=== PATIENT | male | born 2000 | race Hispanic/Latino ===

== ENCOUNTER 2019-11-23 13:55 | Inpatient (IN) | payer OTHER ==
[~2019-11-23] VITALS: Ht 165.1 cm; Wt 62.7 kg
[2019-11-23 14:27] LABS: HEMOGLOBIN 15.5 g/dl (13.5-17.5); MEAN CORPUSCULAR HEMOGLOBIN 30.7 pg (27.0-33.0); MEAN CORPUSCULAR HGB CONC 34.4 g/dl (32.0-36.5); MEAN CORPUSCULAR VOLUME 89.1 fl (80.0-96.0); PLATELET COUNT, AUTOMATED 289 10^3/uL (150-450); RED BLOOD COUNT 5.05 10^6/uL (4.30-6.10); WHITE BLOOD COUNT 5.8 10^3/uL (4.0-10.0)
[2019-11-23 14:48] LABS: AMPHETAMINES LEVEL URINE NEGATIVE (NEGATIVE); BARBITURATES URINE NEGATIVE (NEGATIVE); BENZODIAZEPINES URINE NEGATIVE (NEGATIVE); CANNABINOIDS URINE NEGATIVE (NEGATIVE); COCAINE METABOLITE URINE NEGATIVE (NEGATIVE); METHADONE URINE NEGATIVE (NEGATIVE); OPIATES URINE NEGATIVE (NEGATIVE); PHENCYCLIDINE URINE NEGATIVE (NEGATIVE)
[2019-11-23 14:58] LABS: ACETAMINOPHEN LEVEL < 2.0 UG/ML (10.0-30.0); ALBUMIN 4.4 GM/DL (3.2-5.2); ALT/SGPT 31 U/L (12-78); BILIRUBIN,DIRECT 0.2 MG/DL (0.0-0.2); BILIRUBIN,TOTAL 0.7 MG/DL (0.2-1.0); BLOOD UREA NITROGEN 13 MG/DL (7-18); CALCIUM LEVEL 8.7 MG/DL (8.5-10.1); CARBON DIOXIDE LEVEL 29 MEQ/L (21-32); CHLORIDE LEVEL 106 MEQ/L (98-107); CREATININE FOR GFR 0.91 MG/DL (0.70-1.30); ETHYL ALCOHOL (ETHANOL) < 0.003 % (0.000-0.010); GLUCOSE, FASTING 91 MG/DL (70-100); SALICYLATE LEVEL < 1.7 MG/DL (5.0-30.0); SODIUM LEVEL 140 MEQ/L (136-145)
[2019-11-23] MEDS ORDERED: MAALOX 30 ML SUSP *UDC PO PRN (16:15)
[2019-11-23] MEDS ORDERED: MOM 30ML SUSPENSION UDC PO PRN (16:15)
[2019-11-23] MEDS ORDERED: hydrOXYzine 25 MG TAB PO PRN (16:15)
[2019-11-23] MEDS ORDERED: ACETAMINOPHEN TAB 650MG DOSE (2X325MG) PO PRN (16:15)
[2019-11-23] MEDS ORDERED: traZODone 50 MG TAB PO PRN (16:15)
[2019-11-23 17:14] VITALS: BP 157/91
[2019-11-23] MEDS: SERTRALINE HCL 50 MG TAB PO SCH (22:07)
[2019-11-24 06:33] VITALS: BP 150/83
[2019-11-24 11:08] VITALS: BP 150/83
--- NOTE | 2019-11-24 12:06 | HPEPDOC ---
[facility] Medical History & Physical Date of Admission Nov 24, 2019 Date of Service: Nov 24, 2019 History and Physical CHIEF COMPLAINT: Medical H&P for inpatient mental health unit patient HISTORY OF PRESENT ILLNESS: 19 yo male for suicidal ideation, no medical complaints at this time, denies any medical history. PAST MEDICAL HISTORY: Denies PAST SURGICAL HISTORY: Denies ALLERGIES: Please see below. REVIEW OF SYSTEMS: Negative except as per HPI. HOME MEDICATIONS: Please see below. PHYSICAL EXAM Vital Signs: See below General: NAD, lying comfortably in bed HEENT: NC/AT, EOMI, PERRL Lungs: CTA B/L Heart: +S1S2, RRR Abd: soft, NT, +BS Ext: no edema Neuro: no gross focal deficits Psych: AAOx3 LABORATORY DATA: See below. MICROBIOLOGY: Please see below. ASSESSMENT: 19 yo male admitted to [facility] for suicidal ideation, hospitalist consulted for medical co-management. #suicidal ideation - continue to follow as per primary team - psychiatry #DVT prophylaxis - not indicated Vital Signs Vital Signs Date Time Temp Pulse Resp B/P (MAP) Pulse Ox O2 Delivery O2 Flow Rate FiO2 11/24/19 11:08 99.5 57 16 150/83 98 Room Air Laboratory Data Labs 24H Laboratory Tests 2 11/23/19 14:15: Nucleated Red Blood Cells % (auto) 0.0, Anion Gap 5L, Calcium Level 8.7, Total Bilirubin 0.7, Direct Bilirubin 0.2, Aspartate Amino Transf (AST/SGOT) 20, Alanine Aminotransferase (ALT/SGPT) 31, Alkaline Phosphatase 83, Total Protein 8.0, Albumin 4.4, Albumin/Globulin Ratio 1.22, Thyroid Stimulating Hormone (TSH) 0.990, Salicylates Level < 1.7L, Urine Opiates Screen NEGATIVE, Urine Methadone Screen NEGATIVE, Acetaminophen Level < 2.0L, Urine Barbiturates Screen NEGATIVE, Urine Phencyclidine Screen NEGATIVE, Urine Amphetamines Screen NEGATIVE, Urine Benzodiazepines Screen NEGATIVE, Urine Cocaine Metabolite Screen NEGATIVE, Urine Cannabinoids Screen NEGATIVE, Ethyl Alcohol Level < 0.003 CBC/BMP Laboratory Tests 11/23/19 14:15 Home Medications Scheduled Oseltamivir Phosphate (Oseltamivir Phosphate) 75 Mg Capsule, 75 MG PO DAILY for flu Sertraline HCl (Sertraline HCl) 50 Mg Tablet, 50 MG PO QHS for mood Allergies Coded Allergies: No Known Allergies (Unverified , 2/22/20) A-FIB/CHADSVASC A-FIB History Current/History of A-Fib/PAF?: No KAZ SCHULTZ MD Nov 24, 2019 12:06
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
[2019-11-24 16:00] VITALS: BP 140/78
[2019-11-24] MEDS: SERTRALINE HCL 50 MG TAB PO SCH (20:39)
[2019-11-25 06:46] VITALS: BP 134/68
--- NOTE | 2019-11-25 08:41 | MHIPNPDOC ---
[facility] Progress Note Progress Note Joel Hoskins Inpatient Progress Note Joel Hoskins Select Gender MRN: N/A Date of : MM/DD/YYYY Date of Service: 11/25/2019 History of Present Illness Patient is a 19 -year-old , male, who as per ED report " Pt presented to ED with his Rosa SGt. after stating +SI and needed help. Pt reported, made several attempts since age 6. Pt stated last attempt was a week ago when he "bashed" his head against wall and kocked himself. "Didn't care if I woke up". "Pt attempted SI by overdose (Nyquil & Ibeprofin) 2 weeks ago. "I get mad when I wake in morning, damn I'm still alive". Pt reported thoughts of SI daily, some thoughts more intense than other times. Pt stated, self conscious, low self-esteem. "I see myself as worthless and have no use", since age 6-7. According to Pt, attempted to seek help @ [facility]. Had an apt for 11/28/2019, they cancelled it. Next apt is scheduled for 12/18/2019. Pt stated, has 2 SI attempts at age 11y/o and 12 y/o, was never reported". Interval History Narrative: The patient has met with today. He reports that he still feels down. Affective: The patient still reports low mood, loss of interest and difficulty focusing on goals. Psychotic: Denies any symptoms. Anxiety: Situational worries. Eating and sleeping behaviors: Some disruption in sleeping, reports trazodone not helpful. Eating behavior is normal. Group Attendance: Attends infrequently. Medication Side effects: See ROS below Behavioral problems/significant events overnight: None reported. Staff Report: Generally guarded, but amenable upon approach. Review Of Systems General: Denies fever or appetite changes Cardiovascular: Denies Chest pain or palpations GI: Denies Nausea, vomiting, or bowel changes Respiratory: Denies shortness of breath or cough Neuro: Denies dizziness, tremors Derm: Denies any rashes or pruritus : Denies any dysuria or urinary problems MSK: Denies any muscle tightness or stiffness HEENT: Denies any vision changes or headaches Psychotherapy None on this visit. Vital Signs Reviewed. Mental Status Examination General: Well dressed with good hygiene Speech: Spontaneous and fluid Thought processes: Linear MSK: Smooth and coordinated gait, no signs of tremors or involuntary orofacial movements Thought content: Hopeless Abstract reasoning, and computation: Intact Description of associations: Intact Description of abnormal or psychotic thoughts: Denies any suicidal or homicidal ideation. Denies any auditory or visual hallucinations. Does not appear to be responding to internal stimuli. Does not appear to be endorsing any bizarre or paranoid ideation. Judgment: Impaired Insight: Impaired Orientation: Alert and orientated 3 Cognition: Grossly normal Recent and remote memory: Intact Attention span and concentration: Intact Fund of knowledge: Adequate Mood: "fine" Affect: Dysthymic with a constricted range Diagnoses MDD, recurrent, [id number]. PTSD, chronic. Assessment and Plan MDD/PTSD: Continue sertraline 50 mg daily. Disposition Patient will need a further inpatient admission for titration of his medications, his symptoms are quite severe and thus necessitate further treatment due to multiple suicide attempts. Time Spent 15 minutes. Vital Signs Vital Signs Date Time Temp Pulse Resp B/P (MAP) Pulse Ox O2 Delivery O2 Flow Rate FiO2 11/25/19 06:46 98.8 70 16 134/68 (90) Room Air 11/24/19 11:08 98 Current Medications Current Medications Medications (Trade) Dose Ordered Sig/Irving Route PRN Reason Start Time Stop Time Status Last Admin Dose Admin Acetaminophen (Tylenol Tab) 650 mg Q6HP PRN PO HEADACHE or DISCOMFORT 11/23/19 16:15 Al Hydrox/Mg Hydrox/Simethicone (Mylanta) 30 ml Q4HP PRN PO HEARTBURN/INDIGESTION 11/23/19 16:15 Home Med (Med Rec Complete!) ASDIRECTED XX 11/23/19 16:45 11/23/19 16:41 DC Hydroxyzine HCl (Atarax) 25 mg Q4HP PRN PO ANXIETY 11/23/19 16:15 Magnesium Hydroxide (Milk Of Magnesia) 30 ml DAILYPRN PRN PO CONSTIPATION 11/23/19 16:15 Sertraline HCl (Zoloft) 50 mg QHS PO 11/23/19 21:00 11/24/19 20:39 Trazodone HCl (Desyrel) 50 mg QHSP PRN PO INSOMNIA 11/23/19 16:15 11/24/19 21:21 Allergies Coded Allergies: No Known Allergies (Unverified , 11/23/19) NAT JERRY DO Nov 25, 2019 08:41
[2019-11-25 15:47] VITALS: BP 150/90
[2019-11-25] MEDS: RAMELTEON 8 MG TAB (ROZEREM) PO SCH (20:06)
[2019-11-25] MEDS: SERTRALINE HCL 50 MG TAB PO SCH (20:06)
[2019-11-26 06:52] VITALS: BP 143/76
--- NOTE | 2019-11-26 15:28 | IPNPDOC ---
Date Seen The patient was seen on 11/26/19. Progress Note We were recalled because there is a flu outbreak in inpatient mental health unit and patient is requesting prophylactic Tamiflu. Patient seen, comfortable in bed, asymptomatic, denies any short of breath, cough, nausea, vomiting, myalgia, arthralgia, or fever. Patient would like Tamiflu. Patient has no complaints at this time PHYSICAL EXAMINATION: VITAL SIGNS: Please see below. GENERAL: No distress HEENT: Normocephalic, atraumatic, moist mucous membranes NECK: Supple CARDIOVASCULAR EXAMINATION: S1, S2, no murmurs RESPIRATORY EXAMINATION: Clear to auscultation, no wheezing ABDOMINAL EXAMINATION: Soft, nontender, nondistended, positive bowel sounds EXTREMITIES: Range of motion intact SKIN: No rash NEUROLOGICAL EXAMINATION: Alert and oriented 3, no focal deficits PSYCHIATRIC EXAMINATION: Calm and cooperative Plan: Check respiratory viral panel, Tamiflu 75 mg daily for prophylaxis. VS, I&O, 24H, Fishbone Vital Signs/I&O Vital Signs Date Time Temp Pulse Resp B/P (MAP) Pulse Ox O2 Delivery O2 Flow Rate FiO2 11/26/19 07:57 Room Air 11/26/19 06:52 97.4 75 16 143/76 (98) 11/24/19 11:08 98 KASH JOHNSON MD Nov 26, 2019 15:28
[2019-11-26] MEDS: OSELTAMIVIR PHOSPHATE 75 MG CAP (TAMIFLU) PO SCH (15:52)
[2019-11-26 16:00] VITALS: BP 153/90
[2019-11-26] MEDS: RAMELTEON 8 MG TAB (ROZEREM) PO SCH (20:58)
[2019-11-26] MEDS: SERTRALINE HCL 50 MG TAB PO SCH (20:58)
--- NOTE | 2019-11-26 23:23 | MHIPN ---
DATE: 11/26/2019 The patient states, "I'm doing fine." He feels it is because being in the hospital he is not feeling as stressed out, and therefore, not having any impulse to self-harm. MENTAL STATUS EXAM: This patient is alert and oriented times three. Eye contact is fairly good. He is verbally spontaneous. There is no formal thought disorder noted. Mood is "fine." Affect restricted but appropriate. He is not psychotic. Denying being suicidal or homicidal. Concentration is fair. Memory intact. Insight and judgment fair. DIAGNOSIS: Major depressive disorder, recurrent, moderate to severe. Post-traumatic stress disorder, chronic. TREATMENT PLAN: We will continue to monitor the patient for continued elevation and stabilization of his mood and continued resolution of suicidal ideations.
[2019-11-27 06:49] VITALS: BP 141/82
--- NOTE | 2019-11-27 10:01 | MHIPNPDOC ---
[facility] Progress Note Progress Note Joel Hoskins Inpatient Progress Note Joel Hoskins Select Gender MRN: N/A Date of : MM/DD/YYYY Date of Service: 11/27/2019 History of Present Illness Patient is a 19 -year-old , male, who as per ED report " Pt presented to ED with his Rosa SGt. after stating +SI and needed help. Pt reported, made several attempts since age 6. Pt stated last attempt was a week ago when he "bashed" his head against wall and kocked himself. "Didn't care if I woke up". "Pt attempted SI by overdose (Nyquil & Ibeprofin) 2 weeks ago. "I get mad when I wake in morning, damn I'm still alive". Pt reported thoughts of SI daily, some thoughts more intense than other times. Pt stated, self conscious, low self-esteem. "I see myself as worthless and have no use", since age 6-7. According to Pt, attempted to seek help @ [facility]. Had an apt for 11/28/2019, they cancelled it. Next apt is scheduled for 12/18/2019. Pt stated, has 2 SI attempts at age 11y/o and 12 y/o, was never reported". Interval History Narrative: The patient is met with in the group setting. He reports that he is feeling much improved and is feeling ready to go home soon. Affective: The patient reports improved low mood, no loss of interest and improved focus and concentration. Psychotic: Denies any symptoms. Anxiety: The patient reports no situational worries at this time. Eating and sleeping behaviors: Normalizing. Group Attendance: Attends more infrequently. Medication Side effects: See ROS below Behavioral problems/significant events overnight: None reported. Staff Report: More friendly and amenable Review Of Systems General: Denies fever or appetite changes Cardiovascular: Denies chest pain or palpitations GI: Denies Nausea, vomiting, or bowel changes Respiratory: Denies shortness of breath or cough Neuro: Denies dizziness, tremors Derm: Denies any rashes or pruritus : Denies any dysuria or urinary problems MSK: Denies any muscle tightness or stiffness HEENT: Denies any vision changes or headaches Psychotherapy None on this visit. Vital Signs Reviewed. Mental Status Examination General: Well dressed with good hygiene Speech: Spontaneous and fluid Thought processes: Linear and logical MSK: Smooth and coordinated gait, no signs of tremors or involuntary orofacial movements Thought content: Future orientated Abstract reasoning, and computation: Intact Description of associations: Intact Description of abnormal or psychotic thoughts: Denies any suicidal or homicidal ideation. Denies any auditory or visual hallucinations. Does not appear to be responding to internal stimuli. Does not appear to be endorsing any bizarre or paranoid ideation. Judgment: fair Insight: fair Orientation: Alert and orientated 3 Cognition: Grossly normal Recent and remote memory: Intact Attention span and concentration: Intact Fund of knowledge: Adequate Mood: "okay" Affect: Euthymic with a full range Diagnoses MDD, recurrent, [id number] in full remission. PTSD, chronic. Assessment and Plan MDD/PTSD: Continue medications as below. Disposition Discharge tomorrow to chain of command pending weather. Time Spent 15 minutes. Vital Signs Vital Signs Date Time Temp Pulse Resp B/P (MAP) Pulse Ox O2 Delivery O2 Flow Rate FiO2 11/27/19 06:49 98.0 62 16 141/82 (101) 11/26/19 07:57 Room Air 11/24/19 11:08 98 Current Medications Current Medications Medications (Trade) Dose Ordered Sig/Irving Route PRN Reason Start Time Stop Time Status Last Admin Dose Admin Acetaminophen (Tylenol Tab) 650 mg Q6HP PRN PO HEADACHE or DISCOMFORT 11/23/19 16:15 Al Hydrox/Mg Hydrox/Simethicone (Mylanta) 30 ml Q4HP PRN PO HEARTBURN/INDIGESTION 11/23/19 16:15 Home Med (Med Rec Complete!) ASDIRECTED XX 11/23/19 16:45 11/23/19 16:41 DC Hydroxyzine HCl (Atarax) 25 mg Q4HP PRN PO ANXIETY 11/23/19 16:15 Magnesium Hydroxide (Milk Of Magnesia) 30 ml DAILYPRN PRN PO CONSTIPATION 11/23/19 16:15 Oseltamivir Phosphate (Tamiflu) 75 mg DAILY PO 11/26/19 09:00 11/26/19 15:52 Ramelteon (Rozerem) 8 mg QHS PO 11/25/19 21:00 11/26/19 20:58 Sertraline HCl (Zoloft) 50 mg QHS PO 11/23/19 21:00 11/26/19 20:58 Trazodone HCl (Desyrel) 50 mg QHSP PRN PO INSOMNIA 11/23/19 16:15 11/25/19 10:24 DC 11/24/19 21:21 Allergies Coded Allergies: No Known Allergies (Unverified , 11/23/19) NAT JERRY DO Nov 27, 2019 10:01
[2019-11-27] MEDS ORDERED: OSEL75CA2 PO (10:38)
[2019-11-27] MEDS ORDERED: SERT50TA29 PO (10:38)
[2019-11-27] MEDS: OSELTAMIVIR PHOSPHATE 75 MG CAP (TAMIFLU) PO SCH (10:39)
[2019-11-27 16:00] VITALS: BP 163/99
[2019-11-27 21:03] VITALS: BP 130/90
[2019-11-27] MEDS: hydrOXYzine 25 MG TAB PO PRN (21:45)
[2019-11-27] MEDS: SERTRALINE HCL 50 MG TAB PO SCH (21:45)
[2019-11-28 06:34] VITALS: BP 133/77
--- NOTE | 2019-11-28 08:45 | MHIPNPDOC ---
[facility] Progress Note Progress Note Joel Hoskins Inpatient Progress Note Joel Hoskins Select Gender MRN: N/A Date of : MM/DD/YYYY Date of Service: 11/28/2019 History of Present Illness Patient is a 19 -year-old , male, who as per ED report " Pt presented to ED with his Rosa SGt. after stating +SI and needed help. Pt reported, made several attempts since age 6. Pt stated last attempt was a week ago when he "bashed" his head against wall and kocked himself. "Didn't care if I woke up". "Pt attempted SI by overdose (Nyquil & Ibeprofin) 2 weeks ago. "I get mad when I wake in morning, damn I'm still alive". Pt reported thoughts of SI daily, some thoughts more intense than other times. Pt stated, self conscious, low self-esteem. "I see myself as worthless and have no use", since age 6-7. According to Pt, attempted to seek help @ [facility]. Had an apt for 11/28/2019, they cancelled it. Next apt is scheduled for 12/18/2019. Pt stated, has 2 SI attempts at age 11y/o and 12 y/o, was never reported". Interval History Narrative: The patient is met within the group setting. He reports that he feels improved and is somewhat upset about being unable to return home due to weather. Affective: The patient denies any depressive symptoms. Psychotic: Denies any symptoms. Anxiety: The patient reports no situational worries at this time. Eating and sleeping behaviors: Normalizing. Group Attendance: Attends more infrequently. Medication Side effects: See ROS below Behavioral problems/significant events overnight: None reported. Staff Report: More friendly and amenable. Review Of Systems General: Denies fever or appetite changes Cardiovascular: Denies Chest pain or palpations GI: Denies Nausea, vomiting, or bowel changes Respiratory: Denies shortness of breath or cough Neuro: Denies dizziness, tremors Derm: Denies any rashes or pruritus : Denies any dysuria or urinary problems MSK: Denies any muscle tightness or stiffness HEENT: Denies any vision changes or headaches Psychotherapy None on this visit. Vital Signs Reviewed. Mental Status Examination General: Well dressed with good hygiene Speech: Spontaneous and fluid Thought processes: Linear and logical MSK: Smooth and coordinated gait, no signs of tremors or involuntary orofacial movements Thought content: Future orientated Abstract reasoning, and computation: Intact Description of associations: Intact Description of abnormal or psychotic thoughts: Denies any suicidal or homicidal ideation. Denies any auditory or visual hallucinations. Does not appear to be responding to internal stimuli. Does not appear to be endorsing any bizarre or paranoid ideation. 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 PTSD, chronic. Assessment and Plan MDD/PTSD: Continue medications as below. Disposition The patient will be discharged to [facility], once they reopen after the inclement weather has resolved. Time Spent 15 minutes. Vital Signs Vital Signs Date Time Temp Pulse Resp B/P (MAP) Pulse Ox O2 Delivery O2 Flow Rate FiO2 11/28/19 06:34 98.5 64 16 133/77 (95) 11/26/19 07:57 Room Air 11/24/19 11:08 98 Current Medications Current Medications Medications (Trade) Dose Ordered Sig/Irving Route PRN Reason Start Time Stop Time Status Last Admin Dose Admin Acetaminophen (Tylenol Tab) 650 mg Q6HP PRN PO HEADACHE or DISCOMFORT 11/23/19 16:15 Al Hydrox/Mg Hydrox/Simethicone (Mylanta) 30 ml Q4HP PRN PO HEARTBURN/INDIGESTION 11/23/19 16:15 Home Med (Med Rec Complete!) ASDIRECTED XX 11/23/19 16:45 11/23/19 16:41 DC Hydroxyzine HCl (Atarax) 25 mg Q4HP PRN PO ANXIETY 11/23/19 16:15 11/27/19 10:37 DC Hydroxyzine HCl (Atarax) 25 mg QHSP PRN PO sleep 11/27/19 20:00 11/27/19 21:45 Magnesium Hydroxide (Milk Of Magnesia) 30 ml DAILYPRN PRN PO CONSTIPATION 11/23/19 16:15 Oseltamivir Phosphate (Tamiflu) 75 mg DAILY PO 11/26/19 09:00 11/27/19 10:39 Ramelteon (Rozerem) 8 mg QHS PO 11/25/19 21:00 11/27/19 10:36 DC 11/26/19 20:58 Sertraline HCl (Zoloft) 50 mg QHS PO 11/23/19 21:00 11/27/19 21:45 Trazodone HCl (Desyrel) 50 mg QHSP PRN PO INSOMNIA 11/23/19 16:15 11/25/19 10:24 DC 11/24/19 21:21 Allergies Coded Allergies: No Known Allergies (Unverified , 11/23/19) NAT JERRY DO Nov 28, 2019 08:45
[2019-11-28] MEDS: OSELTAMIVIR PHOSPHATE 75 MG CAP (TAMIFLU) PO SCH (10:41)
[2019-11-28 17:58] VITALS: BP 154/80
[2019-11-28] MEDS: SERTRALINE HCL 50 MG TAB PO SCH (20:02)
[2019-11-28] MEDS: hydrOXYzine 25 MG TAB PO PRN (22:04)
[2019-11-29 06:23] VITALS: BP 143/80
--- NOTE | 2019-11-29 09:12 | MHDSPDOC ---
[facility] Discharge Summary Discharge Summary DATE OF ADMISSION: Nov 23, 2019 at 16:11 DATE OF DISCHARGE: 12/02/19 Joel Hoskins Discharge Joel Hoskins Select Gender MRN: N/A Date of : MM/DD/YYYY Date of Service: 11/29/2019 Diagnoses MDD, recurrent, [id number] in full remission. PTSD, chronic. History of Present Illness Patient is a 19 -year-old , male, who as per ED report " Pt presented to ED with his Rosa SGt. after stating +SI and needed help. Pt reported, made several attempts since age 6. Pt stated last attempt was a week ago when he "bashed" his head against wall and kocked himself. "Didn't care if I woke up". "Pt attempted SI by overdose (Nyquil & Ibeprofin) 2 weeks ago. "I get mad when I wake in morning, damn I'm still alive". Pt reported thoughts of SI daily, some thoughts more intense than other times. Pt stated, self conscious, low self-esteem. "I see myself as worthless and have no use", since age 6-7. According to Pt, attempted to seek help @ [facility]. Had an apt for 11/28/2019, they cancelled it. Next apt is scheduled for 12/18/2019. Pt stated, has 2 SI attempts at age 11y/o and 12 y/o, was never reported". Consultants Involved Hospitalist/PCP screening Treatment and Progress On The Unit The patient was admitted to the inpatient mental health unit after multiple suicidal gestures. The patient was then started on sertraline with positive effects. He was titrated to a sufficient dose, where he was able to engage well on our unit. He resolved well with the supportive environment, had no behavioral problems and generally engaged well with our treatment team. The patient after resolution of his depression symptoms, was slated for discharge, however, inclement weather made it difficult for the patient to be discharged, and thus he was needed to be retained over the weekend. However, as the patient is ready to be discharged his discharge reprocessed and he would be picked up by his chain of command once his chain of command is able to after the weather clears. Discharge Assessment 19-year-old man with likely [id number] depression, put into remission by sufficient dose SSRI on top of a history of trauma, does well on our unit with sufficient first-line treatments. His discharge was processed on the date of the service, and he will be collected by his chain of command once weather permits. The patient at the time of discharge did not meet criteria for involuntary admission/extension due to having a normal mental status exam, fair insight into the situation, They are engaged in the discharge process, as well as being friendly and amenable in behavioral control and havent been engaging in any observed concerning behavior or ideation recently. They decline voluntary extension/admission at this time and must be discharged in good qing, as Im unable to make a case for holding the patient against their will. They may have historical risk factors of admissions and other interactions with psychiatry however, those are not modifiable from a clinical perspective. The patient will need to be discharged in good qing. Mental Status Examination General: Well dressed with good hygiene Speech: Spontaneous and fluid Thought processes: Linear and logical MSK: Smooth and coordinated gait, no signs of tremors or involuntary orofacial movements Thought content: Future orientated Abstract reasoning, and computation: Intact Description of associations: Intact Description of abnormal or psychotic thoughts: Denies any suicidal or homicidal ideation. Denies any auditory or visual hallucinations. Does not appear to be responding to internal stimuli. Does not appear to be endorsing any bizarre or paranoid ideation. Judgment: fair Insight: fair Orientation: Alert and orientated 3 Cognition: Grossly normal Recent and remote memory: Intact Attention span and concentration: Intact Fund of knowledge: Adequate Mood: "okay" Affect: Euthymic with a full range Follow Up The social work team worked during the predischarge meeting in order to evaluate for further issues of lethality address them fully before discharge. They worked on safety planning with the patient's family members in order to ensure that the patient will have a safe and effective discharge. Time Spent The amount of time spent in the coordination of care for this patient was approximately 50 minutes. Vital Signs/I&Os Vital Signs Date Time Temp Pulse Resp B/P (MAP) Pulse Ox O2 Delivery O2 Flow Rate FiO2 11/29/19 06:23 98.1 82 16 143/80 (101) 11/26/19 07:57 Room Air 11/24/19 11:08 98 Laboratory Data Microbiology Microbiology 11/26/19 Respiratory Virus Panel (PCR) (OSCAR) - Final, Complete Medications Scheduled Oseltamivir Phosphate (Oseltamivir Phosphate) 75 Mg Capsule, 75 MG PO DAILY for flu for 4 Days, #4 Sertraline HCl (Sertraline HCl) 50 Mg Tablet, 50 MG PO QHS for mood for 7 Days, #7 Allergies Coded Allergies: No Known Allergies (Unverified , 11/23/19) NAT JERRY DO Nov 29, 2019 09:12
[2019-11-29] MEDS: OSELTAMIVIR PHOSPHATE 75 MG CAP (TAMIFLU) PO SCH (10:29)
[2019-11-29 16:00] VITALS: BP 132/87
[2019-11-29] MEDS: hydrOXYzine 25 MG TAB PO PRN (21:12)
[2019-11-29] MEDS: SERTRALINE HCL 50 MG TAB PO SCH (21:12)
[2019-11-30 06:39] VITALS: BP 135/84
[2019-11-30] MEDS: OSELTAMIVIR PHOSPHATE 75 MG CAP (TAMIFLU) PO SCH (10:43)
[2019-11-30 16:13] VITALS: BP 155/92
[2019-11-30] MEDS: hydrOXYzine 25 MG TAB PO PRN (21:15)
[2019-11-30] MEDS: SERTRALINE HCL 50 MG TAB PO SCH (21:15)
[2019-12-01 06:36] VITALS: BP 132/78
[2019-12-01] MEDS: OSELTAMIVIR PHOSPHATE 75 MG CAP (TAMIFLU) PO SCH (09:00)
[2019-12-01 16:08] VITALS: BP 160/95
[2019-12-01] MEDS: SERTRALINE HCL 50 MG TAB PO SCH (21:02)
[2019-12-01] MEDS: hydrOXYzine 25 MG TAB PO PRN (21:02)
[2019-12-02 06:33] VITALS: BP 146/74
[2019-12-02] MEDS: OSELTAMIVIR PHOSPHATE 75 MG CAP (TAMIFLU) PO SCH (09:16)
== END 2019-12-02 14:15 | disposition home or self-care (01) | DRG 885 ==
LOC: M ED 13:55 → M ED INP 16:11 → M PSY 17:09
PROVIDERS: ADMIT Psychiatry & Neurology Psychiatry; ATTEND Psychiatry & Neurology Psychiatry
DX: F33.1 Major depressive disorder, recurrent, moderate (principal); F43.12 Post-traumatic stress disorder, chronic; Z62.810 Personal history of physical and sexual abuse in childhood; Z79.899 Other long term (current) drug therapy; Z91.5 Personal history of self-harm; G47.00 Insomnia, unspecified